=== PATIENT | female | born 1965 | race Two or more races ===

== ENCOUNTER 2023-06-19 15:49 | Emergency (ER) | payer OTHER ==
[2023-06-19 15:53] VITALS: BP 132/72; PULSE 80; RESP 18; TEMP 98; BMI 26.6
[2023-06-19] MEDS ORDERED: LIDOCAINE 5% TOPICAL PATCH TP ONE (17:06)
[2023-06-19] MEDS ORDERED: LIDOCAINE 5% TOPICAL PATCH ONE (17:26)
[2023-06-19] MEDS ORDERED: LIDOCAINE PATCH REMOVAL MC SCH (22:00)
== END 2023-06-19 17:28 | disposition home or self-care (01) ==
LOC: JERFT 15:49
DX: M25.512 Pain in left shoulder (principal); M54.6 Pain in thoracic spine; V49.50XA Passenger injured in collision with unspecified motor vehicles in traffic accident, initial encounter; Y92.410 Unspecified street and highway as the place of occurrence of the external cause
CPT/HCPCS: 99283-25